=== PATIENT | male | born 1980 | race Caucasian/White ===

== ENCOUNTER 2021-03-20 15:33 | Emergency (ER) | payer OTHER, SELFPAY ==
--- NOTE | ~2021-03-20 | CT_ITS ---
EXAMINATION: CT brain wo con DATE: 03/20/2021 17:16 INDICATION: Seizure. TECHNIQUE: Computed tomography (CT) of the head was performed without intravenous contrast. The mA wa s adjusted according to patient size. Iterative reconstruction technique was employed. The dose-lengt h product was 605.33 mGy-cm. COMPARISON: None FINDINGS: There is no intracranial hemorrhage, acute infarction, or abnormal intracranial mass lesion . The ventricles are normal in size. The orbits are normal. There is mild mucosal thickening in the p aranasal sinuses. The mastoid air cells are normal. IMPRESSION: 1. Normal brain. Reviewed, dictated and finalized at location A. IMPRESSION: 1. Normal brain.
[2021-03-20 15:32] VITALS: BP 159/102; PULSE 93; RESP 18; TEMP 36.9; O2SAT 97
--- NOTE | 2021-03-20 15:50 | PC.NURSE ---
Arrives via EMS s/p witnessed seizure, was at work doing construction, was standing and became rigid, foaming at mouth when a co-worker lowered him to the ground, ~5min episode, +incontinent, was post-ictal per medics, Accucheck 110. Hx seizure disorder since 10 years ago, they did a bunch of tests could not find the cause , not on meds, reports last seizure one year ago. Daily ETOH (beer), denies prior withdrawal seizures. Pt currently awake, AOx3, non-labored respirations. Seizure precautions initiated
--- NOTE | 2021-03-20 16:15 | ECG_ITS ---
Measurements Intervals [place] Rate: 88 P: 58 AR: 180 QRS: 36 QRSD: 102 T: 18 QT: 350 QTc: 425 Interpretive Statements SINUS RHYTHM BASELINE ARTIFACT- I, II, III, AVR, AVL, AVF, V1-V6 NORMAL ECG Electronically Signed On 03-20-2021 16:31:46 CDT by Manuel Saini D.O.
[2021-03-20 17:42] LABS: Basophils Percent Auto 0.3 % (0.2-1.2); Hematocrit 40.7 % (42.0-52.0); Hemoglobin 13.9 g/dL (14.0-18.0); Immature Granulocyte Absolute 0.04 K/mm3 (0.00-0.031); Immature Granulocyte Percent A 0.4 % (0-0.5); Lymphocytes Absolute Auto 0.85 K/mm3 (0.9-3.2); Mean Corpuscular HGB Conc 34.2 g/dl (32-36); Mean Corpuscular Hemoglobin 32.2 pg (26-34); Mean Corpuscular Volume 94.2 fl (80-100); Mean Platelet Volume 10.2 fl (7.4-10.4); Monocytes Absolute Auto 0.7 K/mm3 (0.1-0.6); Monocytes Percent Auto 7.1 % (2.6-8.5); Neutrophils Absolute Auto 7.9 K/mm3 (1.3-6.7); Neutrophils Percent Auto 83.2 % (45.5-73.1); Platelet Count Result 198 k/mm3 (150-375); Red Blood Count 4.32 M/mm3 (4.6-6.20); Red Cell Distribution Width 12.1 % (11.5-14.5); White Blood Count 9.5 K/mm3 (4.5-10.0)
[2021-03-20 17:56] LABS: Ethanol < 10 mg/dL (<10)
[2021-03-20 17:57] LABS: Alanine Aminotransferase 28 U/L (4-50); Alkaline Phosphatase 82 U/L (38-126); Anion Gap 8 mmol/L (8-16); Aspartate Amino Transferase 41 U/L (17-59); Bilirubin,Total 0.3 mg/dL (0.2-1.3); Blood Urea Nitrogen 11 mg/dL (9-20); Calcium 8.4 mg/dL (8.4-10.2); Carbon Dioxide 25 mmol/L (22-30); Chloride 103 mmol/L (98-107); Estimated Glomerular Filt Rate > 60; Glucose 96 mg/dL (75-110); Potassium 3.7 mmol/L (3.4-5.0); Sodium 136 mmol/L (137-145)
[2021-03-20 18:20] LABS: Barbiturate Screen Urine Negative (Negative); Benzodiazepines Screen Urine Negative (Negative)
[2021-03-20] MEDS: PHENobarbital (*CRX) 60 MG TABLET PO (18:23)
[2021-03-20 18:26] LABS: Amphetamine Screen Urine Negative (Negative); Cannabinoid Screen Urine Negative (Negative); Cocaine Screen Urine Negative (Negative); Methadone Screen Urine Negative (Negative); Opiate Screen Urine Negative (Negative); Phencyclidine Screen Urine Negative (Negative)
[2021-03-20] MEDS: levETIRAcetam 500MG/NACL 100ML 500 MG/100 ML BAG 400 MG IVPB (18:41)
[2021-03-20] MEDS: THIAMINE HCL 200 MG/2 ML VIAL 500 MG IV PUSH (18:41)
[2021-03-20 18:42] VITALS: BP 143/88; PULSE 74; RESP 18; O2SAT 100
[2021-03-20 19:04] VITALS: BP 134/87; PULSE 80; RESP 13; O2SAT 98
--- NOTE | 2021-03-20 19:04 | PC.NURSE ---
Pt asleep easily arousable, non-labored respirations, no further seizure activity during ED stay. at bedside and updated on POC
--- NOTE | 2021-03-20 19:18 | PC.NURSE ---
Pt presents to ED from work post seizure activity. Per pt he only remembers being at work and falling to the ground. Denies recollection of any events afterwards. Pt states he has hx of seizure but has not had one in several years and denies home medications to treat. Pt is no longer post ictal and is alert an oriented x4. vitals are stable and pt is in no obvious distress. Pt state is present in ED but at this time, she is not present at bedside. Call button and personal items within reach. Pt advised to press call button for assistance.
--- NOTE | 2021-03-20 19:45 | PC.NURSE ---
returned to bedside and questions what is next for poc. Both she and pt updated on poc and all questions and concerns addressed. Pt state he is feeling much better and is ready for pt to be dc'd. requesting to speak with EDMD.
--- NOTE | 2021-03-20 19:58 | ED.SEIZURE ---
HPI - Seizure General Chief Complaint: Seizure Stated Complaint: SEIZURE Time Seen by Provider: 03/20/21 15:40 Source: patient and EMS Mode of arrival: EMS Limitations: no limitations History of Present Illness HPI Narrative: 40-year-old male Brought in from work by EMS for a seizure Patient states that about 10 years ago he had several seizures in the period of a week or 2 To the best of his recollection he was seen and evaluated at the hospital in [place] and nothing was found and he was not prescribed any anticonvulsants Today's episode he was noted to have generalized shaking which lasted for 3 to 5 minutes, bit his tongue, and was incontinent of urine At this time his mental status is back to normal and he is fully O x4 and really has no complaints Notably he sees a therapist in [place] for anxiety and possible PTSD issues He self treats with Lexapro and the occasional Xanax which he borrows from his girlfriend He does not think this helps him all that much He also drinks, usually somewhere between 6 and 12 beers a day, although he has been trying to cut back a little bit on that lately and that was the subject of discussion at his last discussion with his therapist last He last drank last night approximately 6 or 8 beers and that would be about 14 to 16 hours before this episode He has never had an alcohol withdrawal seizure He does not have any other alcohol abstinence type phenomenon such as anxiety or tremor Seizure History: Yes Related Data Allergies Allergy/AdvReac Type Severity Reaction Status Date / Time Penicillins Allergy Hives Verified 03/20/21 15:42 Review of Systems Review of Systems: All systems reviewed & are unremarkable except as noted in HPI and below Constitutional: Constitutional: Reports no additional constitutional complaints, Denies chills, Denies fatigue, Denies fever(s), Denies headache(s) and Denies weakness Eyes: Eyes: Reports no additional eye complaints and Denies change in vision ENT: Denies headache(s) and Denies sore throat Comments: Tongue pain Cardiovascular: Cardiovascular: Denies chest pain and Denies dyspnea Respiratory: Respiratory: Denies cough and Denies dyspnea Gastrointestinal: Gastrointestinal: Denies abdominal pain, Denies diarrhea and Denies vomiting Genitourinary: Genitourinary: Denies dysuria and Denies urinary frequency Musculoskeletal: Musculoskeletal: Denies deformity, Denies arthralgias, Denies joint swelling and Denies numbness Integumentary/Breasts: Skin/Breast: Denies rash and Denies wounds Neurologic: Denies headache(s), Denies focal weakness and Denies numbness Psychiatric: Psychiatric: Reports no additional psychiatric complaints Endocrine: Endocrine: Reports no additional endocrine complaints Hematologic/Lymphatic: Hematologic/Lymphatic: Reports no additional hematologic/lymphatic complaints Allergic/Immunologic: Allergic/Immunologic: Reports no additional allergic/immunologic complaints Exam Const: General: cooperative, healthy appearing, no acute distress and alert Orientation/consciousness: patient oriented x3 (alert) HENMT: Head: normal to inspection, normocephalic, atraumatic, no contusions and no hematomas Ears: external ears normal General nose exam: no epistaxis Other: Superficial bite to the tip of his tongue Eyes: Conjunctivae: conjunctivae normal Pupils: Equal, round and reactive pupils present EOM: EOMs intact bilaterally Neck: Neck: normal visual inspection, supple and no JVD Resp: Effort & Inspection: normal respiratory effort and not labored Auscultation: clear to auscultation bilaterally and other (BS =) Cardio: Rate: regular rate Rhythm: regular rhythm Heart sounds: no murmurs GI: GI Palp: Yes Soft to palpation and No Tenderness to palpation present (GI) Skin: General skin exam: normal color and no rashes or lesions noted Neuro: General: patient oriented x3 (alert), moves all extremities, no
--- NOTE | 2021-03-20 20:03 | PC.NURSE ---
EDMD presented to bedside to update pt and on poc. All questions and concerns addressed.
[2021-03-20 20:27] VITALS: BP 136/84; PULSE 70; RESP 12; TEMP 36.6; O2SAT 99
== END 2021-03-20 20:30 | disposition home or self-care (01) ==
PROVIDERS: Emergency Provider Emergency Medicine
DX: R56.9 Unspecified convulsions (principal)
CPT/HCPCS: 36415; 70450; 80053; 80307; 85025; 93005; 96374; 96375; 99284; A9270; J1953; J3411